=== PATIENT | male | born 1985 | race Caucasian/White ===

== ENCOUNTER 2021-04-30 17:12 | Emergency (ER) | payer OTHER ==
[2021-04-30 17:19] VITALS: BP 121/78; TEMP 97.9; BMI 27.3
[2021-04-30 18:41] VITALS: PULSE 86
== END 2021-04-30 18:47 | disposition home or self-care (01) ==
LOC: JER 17:12
DX: R07.9 Chest pain, unspecified (principal)
CPT/HCPCS: 71046-TC-FY; 93005; 93010; 99284-25